=== PATIENT | female | born 1990 | race Caucasian/White ===

== ENCOUNTER 2016-09-26 16:32 | Observation (INO) | payer OTHER ==
[~2016-09-26] VITALS: Ht 158 cm; Wt 72.1 kg
[2016-09-26] MEDS ORDERED: PREN1TAB80 PO (16:47)
[2016-09-26] MEDS ORDERED: LEVO25TA9 PO (16:47)
[2016-09-26 16:49] VITALS: BP 110/70
== END 2016-09-26 18:00 | disposition home or self-care (01) ==
LOC: 4S 16:32
PROVIDERS: ADMIT Obstetrics & Gynecology; ATTEND Obstetrics & Gynecology
DX: O42.913 Preterm premature rupture of membranes, unspecified as to length of time between rupture and onset of labor, third trimester (principal); O62.9 Abnormality of forces of labor, unspecified; O26.893 Other specified pregnancy related conditions, third trimester; M54.5 Low back pain; Z3A.36 36 weeks gestation of pregnancy
CPT/HCPCS: 36415; 59025; 89060; G0378

== ENCOUNTER 2016-10-13 21:01 | Observation (INO) | payer OTHER ==
[~2016-10-13] VITALS: Ht 158 cm; Wt 76.2 kg
[~2016-10-13 21:01] MED LIST: LEVO25TA9 PO; PREN1TAB80 PO
[2016-10-14] MEDS ORDERED: LEVO100 PO (08:58)
[2016-10-14] MEDS ORDERED: LEVO125 PO (11:05)
== END 2016-10-13 23:10 | disposition home or self-care (01) ==
LOC: 4S 21:01
PROVIDERS: ADMIT Obstetrics & Gynecology; ATTEND Obstetrics & Gynecology
DX: O26.893 Other specified pregnancy related conditions, third trimester (principal); M54.5 Low back pain; O62.9 Abnormality of forces of labor, unspecified; Z3A.39 39 weeks gestation of pregnancy
CPT/HCPCS: 59025; G0378

== ENCOUNTER 2016-10-14 08:38 | Inpatient (IN) | payer OTHER ==
[~2016-10-14] VITALS: Ht 157.5 cm; Wt 74.4 kg
[2016-10-14 08:50] VITALS: BP 105/69
[2016-10-14] MEDS ORDERED: RINGERS SOLUTION,LACTATED 1,000 ML IV ONE (08:54)
[2016-10-14] MEDS ORDERED: LEVO100 PO (08:58)
[2016-10-14] MEDS ORDERED: METOCLOPRAMIDE HCL 5 MG/ML 2 ML VIAL IVP ONE (09:00)
[2016-10-14] MEDS ORDERED: CITRIC ACID/SODIUM CITRATE 30 ML SOLUTION UDCUP PO ONE (09:00)
[2016-10-14 09:57] LABS: BASOPHILS % (AUTO) 0.4 % (0.0-2.0); EOSINOPHILS % (AUTO) 0.8 % (1.0-6.0); HEMATOCRIT 38.8 % (36-46); LYMPHOCYTES # (AUTO) 2.1 K/uL (1.0-4.8); LYMPHOCYTES % (AUTO) 20.8 % (22.0-44.0); MEAN CORPUSCULAR HEMOGLOBIN 34.3 pg (26.0-34.0); MEAN CORPUSCULAR HGB CONC 33.5 G/dL (31.0-37.0); MEAN CORPUSCULAR VOLUME 102 fL (80-100); MONOCYTES # (AUTO) 0.8 K/uL (0.1-1.0); MONOCYTES % (AUTO) 7.5 % (2.0-9.0); NEUTROPHILS # (AUTO) 7.1 K/uL (1.8-7.7); NEUTROPHILS % (AUTO) 70.5 % (40.0-70.0); PLATELET COUNT (AUTO) 306 K/uL (150-450); RED BLOOD CELL COUNT(AUTO) 3.79 MIL/uL (4.00-5.20)
[2016-10-14 10:16] LABS: RBC MORPHOLOGY COMMENT ABNORMAL RBC MORPH
[2016-10-14] MEDS ORDERED: FentaNYL CITRATE-PF 100 MCG/2 ML VIAL IVP PRN ×2 (10:30)
[2016-10-14] MEDS ORDERED: MORPHINE SULFATE 10 MG/ML SYRINGE IVP PRN (10:30)
[2016-10-14] MEDS ORDERED: ONDANSETRON HCL 4 MG/2 ML VIAL IVP PRN (10:30)
[2016-10-14] MEDS ORDERED: MEPERIDINE-PF 25 MG/ML SYRINGE IVP PRN (10:30)
[2016-10-14] MEDS ORDERED: HYDROmorphone 2 MG/ML SYRINGE IVP PRN (10:30)
[2016-10-14] MEDS ORDERED: NALOXONE HCL 0.4 MG/ML VIAL IVP PRN (10:30)
[2016-10-14] MEDS ORDERED: NALBUPHINE HCL 10 MG/ML VIAL IVP PRN ×2 (10:30)
[2016-10-14] MEDS ORDERED: DiphenhydrAMINE HCL 50 MG/ML VIAL IVP PRN (10:30)
[2016-10-14] MEDS ORDERED: LEVO125 PO (11:05)
[2016-10-14] MEDS ORDERED: CeFAZolin 2 GM/DEXTROSE 50 ML IV ONE (11:32)
[2016-10-14] MEDS ORDERED: KETOROLAC TROMETHAMINE 60 MG/2 ML VIAL IM ONE (12:00)
[2016-10-14] MEDS ORDERED: OXYTOCIN 10 UNITS/ML VIAL IM ONE (12:00)
[2016-10-14] MEDS ORDERED: EPHEDrine SULFATE 50 MG/ML VIAL IM ONE (12:00)
[2016-10-14] MEDS ORDERED: ONDANSETRON HCL 4 MG/2 ML VIAL IVP ONE (12:00)
[2016-10-14] MEDS ORDERED: DEXAMETHASONE SOD PHOS 4 MG/ML VIAL IVP ONE (12:00)
[2016-10-14] MEDS ORDERED: ACETAMINOPHEN/CODEINE 300-30 MG TABLET PO PRN (13:45)
[2016-10-14] MEDS ORDERED: LANOLIN 7 GM OINTMENT TP PRN (13:45)
[2016-10-14] MEDS ORDERED: ACETAMINOPHEN 1000 MG/ISO-OSM 100 ML IV ONE (13:58)
[2016-10-14] MEDS: ACETAMINOPHEN 1000 MG/ISO-OSM 100 ML IV SCH ×2 (14:02→21:54)
[2016-10-14] MEDS: DEXTROSE 5%-0.45% SODIUM CHL 1,000 ML IV SCH ×2 (15:30→19:50)
[2016-10-14] MEDS ORDERED: KETOROLAC TROMETHAMINE 30 MG/ML VIAL IVP SCH (18:00)
[2016-10-14] MEDS: KETOROLAC TROMETHAMINE 30 MG/ML VIAL IVP SCH (19:42)
[2016-10-14] MEDS ORDERED: OXYGEN THERAPY IH SCH ×2 (20:00)
[2016-10-15] MEDS: DEXTROSE 5%-0.45% SODIUM CHL 1,000 ML IV SCH ×2 (00:03→04:26)
[2016-10-15] MEDS: KETOROLAC TROMETHAMINE 30 MG/ML VIAL IVP SCH (01:24)
[2016-10-15] MEDS: LEVOTHYROXINE SODIUM 125 MCG TABLET PO SCH (06:46)
[2016-10-15] MEDS: IBUPROFEN 800 MG TABLET PO SCH ×3 (06:46→20:28)
[2016-10-15] MEDS: MAGNESIUM HYDROXIDE SUSPENSION 30 ML UDCUP PO SCH ×2 (09:05→20:28)
[2016-10-15] MEDS: ACETAMINOPHEN/CODEINE 300-30 MG TABLET PO PRN ×2 (14:14→17:16)
[2016-10-16] MEDS: IBUPROFEN 800 MG TABLET PO SCH ×4 (03:52→22:01)
[2016-10-16] MEDS: LEVOTHYROXINE SODIUM 125 MCG TABLET PO SCH (06:35)
[2016-10-16] MEDS: MAGNESIUM HYDROXIDE SUSPENSION 30 ML UDCUP PO SCH ×2 (10:46→22:01)
[2016-10-16] MEDS: ACETAMINOPHEN/CODEINE 300-30 MG TABLET PO PRN (18:04)
[2016-10-17] MEDS: ACETAMINOPHEN/CODEINE 300-30 MG TABLET PO PRN (00:29)
[2016-10-17] MEDS: IBUPROFEN 800 MG TABLET PO SCH ×2 (04:07→09:11)
[2016-10-17] MEDS: LEVOTHYROXINE SODIUM 125 MCG TABLET PO SCH (06:56)
[2016-10-17] MEDS ORDERED: SENNA/DOCUSATE SODIUM 187-50 MG TABLET PO ONE (09:00)
[2016-10-17] MEDS: MAGNESIUM HYDROXIDE SUSPENSION 30 ML UDCUP PO SCH (09:11)
[2016-10-17] MEDS ORDERED: IBUP-1547 PO (09:31)
[2016-10-17] MEDS ORDERED: DSS100 PO (09:32)
== END 2016-10-17 10:35 | disposition home or self-care (01) | DRG 766 ==
LOC: 4S 08:38 → OBSVTOIN 08:38 → 4S 15:33 → PREOBSVTOIN 10-29 08:58
PROVIDERS: ADMIT Obstetrics & Gynecology; ATTEND Obstetrics & Gynecology
PROC: 10D00Z1 Extraction of Products of Conception, Low, Open Approach (ICD-10-PCS; principal; 2016-10-14)
DX: O32.1XX0 Maternal care for breech presentation, not applicable or unspecified (principal); O69.1XX0 Labor and delivery complicated by cord around neck, with compression, not applicable or unspecified; Z3A.39 39 weeks gestation of pregnancy; Z37.0 Single live birth
CPT/HCPCS: 86850; 86900; 86901; 87081; J0131; J0690; J1100; J1885; J2405; J2590; J2765; J3490